=== PATIENT | female | born 1995 | race Hispanic/Latino ===

== ENCOUNTER 2018-08-25 20:40 | Emergency (ER) | payer OTHER ==
[2018-08-25 20:52] VITALS: O2SAT 100
[2018-08-25] MEDS ORDERED: Sodium Chloride 0.9% 1,000 ML IV STA (21:08)
[2018-08-25 21:26] LABS: BASO % 0.4 % (0.0-2.0); EOS # 0.1 K/uL (0.0-0.7); EOS % 1.1 % (0.0-4.0); HEMOGLOBIN 13.9 g/dL (12.0-16.0); LYMPH # 1.7 K/uL (1.0-4.3); LYMPH % 14.5 % (20.0-40.0); MEAN CORPUSCULAR HEMOGLOBIN 28.8 pg (27.0-31.0); MEAN CORPUSCULAR HGB CONC 33.1 g/dL (33.0-37.0); MONO # 0.7 K/uL (0.0-0.8); MONO % 5.8 % (0.0-10.0); NEUT # 9.2 K/uL (1.8-7.0); NEUT % 78.2 % (50.0-75.0); NRBC % 0.1 % (0.0-0.0); RBC 4.82 Mil/uL (3.80-5.20); RED CELL DISTRIBUTION WIDTH 13.2 % (11.5-14.5); WHITE BLOOD COUNT 11.7 K/uL (4.8-10.8)
[2018-08-25 21:37] LABS: ALB/GLOB RATIO 1.3 (1.0-2.1); ALBUMIN 4.4 g/dL (3.5-5.0); ALT/SGPT 29 U/L (9-52); AST/SGOT 27 U/L (14-36); BLOOD UREA NITROGEN 8 mg/dl (7-17); CALCIUM 9.1 mg/dL (8.4-10.2); GFR NON-AFRICAN AMERICAN > 60
[2018-08-25 22:03] LABS: SQUAMOUS EPITHIAL 4 /hpf (0-5); URINE AMORPHOUS SEDIMENT RARE /ul (<OCC); URINE BILIRUBIN NEGATIVE (NEGATIVE); URINE BLOOD NEGATIVE (NEGATIVE); URINE CLARITY CLOUDY (Clear); URINE COLOR YELLOW (YELLOW); URINE GLUCOSE (UA) NEG (NEGATIVE); URINE LEUKOCYTE ESTERASE NEG Leu/uL (Negative); URINE PROTEIN 30 mg/dL (NEGATIVE); URINE UROBILINOGEN 0.2-1.0 mg/dL (0.2-1.0)
--- NOTE | 2018-08-25 22:03 | ED PDOC ---
HPI:Nausea, Vomiting, Diarrhea Time Seen by Provider: 08/25/18 20:59 Chief Complaint (Nursing): GI Problem Chief Complaint (Provider): GI Problem History Per: Patient History/Exam Limitations: no limitations Onset/Duration Of Symptoms: Days (x2) Current Symptoms Are (Timing): Still Present Context: Other () Additional Complaint(s): 23 year old female () who is 12 weeks presents to the ED with worsening vomiting for the last x2 days. Throughout her she typically had x3-4 episodes of vomiting daily and can otherwise tolerate food and drink. In the last two days, she has been vomiting x10 times a day and is unable to tolerate food or drink. Patient also has mild abdominal pain. She was at a class at this hospital when she felt dizzy and was advised to come to the ED. PMD: Kip Lopez Abnormal Vaginal Bleeding: No : 1 Para: 0 Past Medical History Reviewed: Historical Data, Nursing Documentation, Vital Signs Vital Signs: Last Vital Signs Temp 98.5 F 08/25/18 20:49 Pulse 80 08/25/18 20:49 Resp 17 08/25/18 20:49 BP 123/81 08/25/18 20:49 Pulse Ox 100 08/25/18 20:49 - Medical History PMH: No Chronic Diseases - Family History Family History: States: Unknown Family Hx - Allergies Allergies/Adverse Reactions: Allergies Allergy/AdvReac Type Severity Reaction Status Date / Time amoxicillin Allergy RASH Verified 08/25/18 20:52 Review of Systems ROS Statement: Except As Marked, All Systems Reviewed And Found Negative Gastrointestinal: Positive for: Vomiting, Abdominal Pain Physical Exam - Reviewed Nursing Documentation Reviewed: Yes Vital Signs Reviewed: Yes - Physical Exam Appears: Positive for: Non-toxic, No Acute Distress Head Exam: Positive for: ATRAUMATIC, NORMOCEPHALIC Skin: Positive for: Normal Color, Warm, Dry Eye Exam: Positive for: EOMI, Normal appearance, PERRL Neck: Positive for: Normal Cardiovascular/Chest: Positive for: Regular Rate, Rhythm. Negative for: Murmur Respiratory: Positive for: Normal Breath Sounds. Negative for: Respiratory Distress Gastrointestinal/Abdominal: Positive for: Normal Exam, Soft. Negative for: Tenderness Extremity: Positive for: Normal ROM (upper and lower). Negative for: Pedal Edema, Deformity Neurologic/Psych: Positive for: Alert, Oriented (x3) - Laboratory Results Result Diagrams: 08/25/18 21:15 08/25/18 21:15 Lab Results: Total Bilirubin 0.3 mg/dl (0.2-1.3) 08/25/18 21:15 AST 27 U/L (14-36) 08/25/18 21:15 ALT 29 U/L (9-52) 08/25/18 21:15 Alkaline Phosphatase 71 U/L (38-126) 08/25/18 21:15 Total Protein 7.9 G/DL (6.3-8.2) 08/25/18 21:15 Albumin 4.4 g/dL (3.5-5.0) 08/25/18 21:15 Globulin 3.5 gm/dL (2.2-3.9) 08/25/18 21:15 Albumin/Globulin Ratio 1.3 (1.0-2.1) 08/25/18 21:15 - ECG O2 Sat by Pulse Oximetry: 100 (RA) Pulse Ox Interpretation: Normal Medical Decision Making Medical Decision Making: Time: 2107 Workup for hyperemesis gravidarum. Will obtain labs, IV fluids, and abdomen us as patient has not had one and is now having lower abdominal pain and UA to rule out UTI. 145am Pt with normal labs. Given zofran and 2 L of IV fluids with improvement in abd pain, nausea, and vomiting. US shows single intrauterine gestation with FHR of 155. Pt to follow up with ophthalmic lens inspector as needed. ------- Scribe Attestation: Documented by Zuri Bonilla, acting as a scribe for Jemma Dent MD. Provider Scribe Attestation: All medical record entries made by the Scribe were at my direction and personally dictated by me. I have reviewed the chart and agree that the record accurately reflects my personal performance of the history, physical exam, medical decision making, and the department course for this patient. I have also personally directed, reviewed, and agree with the discharge instructions and disposition. Disposition - Clinical Impression Clinical Impression: Vomiting affecting - Disposition Disposition: Routine/Home Disposition Time: 01:45 Condition: IMPROVED Forms: [facility] (Yoruba)
[2018-08-26] MEDS ORDERED: Sodium Chloride 0.9% 1,000 ML IV STA (00:47)
[2018-08-26 01:59] VITALS: BP 124/78; PULSE 76; RESP 16; TEMP 98
--- NOTE | 2018-08-26 11:51 | US ---
Date of service: 08/26/2018 PROCEDURE: Obstetrical ultrasound examination HISTORY: preg, abdominal pain COMPARISON: Not available TECHNIQUE: Transabdominal FINDINGS: There is a single live intrauterine gestation in variable presentation. The heart rate is 155 beats per minute. A grossly normal quantity of amniotic fluid is visualized. There is no subchorionic hemorrhage. The mean gestational sac diameter is 41 mm equivalent to 9 weeks 4 days. The crown-rump length is 39 mm equivalent to 10 weeks 6 days. The composite gestational age by ultrasound examination is 10 weeks 2 days. The YANICK by ultrasound is 03/22/2019. The LMP is 06/09/2018. Probable anterior placenta forming. The uterus measures 10.9 x 5.1 x 8.0 cm. There is no uterine mass. Right ovary measures 4.3 x 2.2 x 2.9 cm. Normal flow. No mass. Left ovary measures 2.0 x 2.3 x 2.8 cm. Normal flow. No mass. There is no free fluid in the cul-de-sac. IMPRESSION: Single live intrauterine gestation of approximately 10 weeks 2 days. heart rate 155 beats per minute. No subchorionic hemorrhage. No additional abnormality. The preliminary findings for this examination were reported by [facility] at 1:43 a.m. on 08/26/2018. There is concurrence of this report with the preliminary findings.
== END 2018-08-26 01:55 | disposition home or self-care (01) ==
LOC: H.ER 20:40
DX: O21.9 Vomiting of pregnancy, unspecified (principal); Z3A.12 12 weeks gestation of pregnancy
CPT/HCPCS: 76815; 80053; 81003; 84702; 85025; 87804; 96361; 96374; 99283; J2405; J7030